=== PATIENT | male | born 1950 | race Caucasian/White ===

== ENCOUNTER 2018-01-17 14:24 | Emergency (ER) | payer OTHER ==
[~2018-01-17] VITALS: Ht 177.8 cm; Wt 87.5 kg
[2018-01-17] MEDS ORDERED: UNICOMPLEX M TA1 TA1 PO (14:40)
[2018-01-17 15:04] LABS: HEMATOCRIT 42.9 % (42.0-52.0); HEMOGLOBIN 14.3 gm/dL (14.0-18.0); MCH 29.5 pg (26.0-34.0); MCHC 33.2 g/dL (28.0-37.0); MCV 88.9 fL (80.0-100.0); MPV 8.2 fl. (7.2-11.1); NUCLEATED RBCS 0 /100WBC; PLATELET COUNT* 288 thou/uL (150-400); RBC 4.83 mil/uL (4.50-6.00); RDW-CV 14.1 % (10.5-14.5)
[2018-01-17 15:28] LABS: ANION GAP 9 mmol/L (7-16); BUN 14 mg/dL (7-18); CALCIUM 8.7 mg/dL (8.5-10.1); CHLORIDE 105 mmol/L (98-107); CO2 25 mmol/L (21-32); CREATININE 0.9 mg/dL (0.6-1.3); GLUCOSE 108 mg/dL (70-99); POTASSIUM 4.7 mmol/L (3.5-5.1); SODIUM 139 mmol/L (136-145)
[2018-01-17 15:33] LABS: ALBUMIN 3.5 g/dL (3.4-5.0); ALKALINE PHOSPHATASE 86 U/L (46-116); SGOT 34 U/L (15-37); SGPT 20 U/L (30-65); TOTAL BILIRUBIN 0.4 mg/dL (<0.1-1.0); TROPONIN-I LEVEL <0.06 ng/mL (<0.06)
[2018-01-17 15:44] LABS: ABSOLUTE LYMPHOCYTES 0.7 thou/uL (0.8-5.3); ABSOLUTE NEUTROPHILS 15.3 thou/uL (1.6-8.1); ATYPICAL LYMPHS 1 %; PLATELET ESTIMATE ADEQUATE
[2018-01-17 16:28] LABS: URINE BLOOD NEGATIVE (Negative); URINE CLARITY CLEAR; URINE COLOR YELLOW; URINE GLUCOSE-RANDOM NEGATIVE (Negative); URINE KETONES 1+ (Negative); URINE LEUKOCYTES-REFLEX NEGATIVE (Negative); URINE NITRITE-REFLEX NEGATIVE (Negative); URINE PROTEIN 1+ (Negative); URINE SPECIFIC GRAVITY >= 1.030 (1.005-1.030); URINE UROBILINOGEN 0.2 E.U./dl (0.2-1.0)
[2018-01-17 16:30] LABS: ICTOTEST (BILI CONFIRMATORY) Negative (Negative); URINE BILIRUBIN 1+ (Negative)
[2018-01-17] MEDS ORDERED: ZOFRAN ODT4 MG PO (16:56)
[2018-01-17] MEDS ORDERED: LOPERAMIDE 2 MG2 M1 PO (16:56)
[2018-01-17 17:04] VITALS: BP 123/73
--- NOTE | 2018-01-18 10:12 | EKG ---
[place] [address] ELECTROCARDIOGRAM REPORT Name: YUMIKO OROZCO [id number] Admission: 01/17/18 Attend Phys: Discharge: 01/17/18 Date of : 54 Report #: [id number] THIS REPORT FOR: //name// [facility] ED Test Date: 2018-01-17 Test Time: 15:09:34 Pat Name: YUMIKO OROZCO Department: Room: Gender: M [employer] Compliance Examiner: : 1950 Requested By: Taya Franklin Order Number: [id number] MD: Chi Bedolla Measurements Intervals [place] Rate: 79 P: 65 SD: 160 QRS: 25 QRSD: 77 T: 60 QT: 362 QTc: 416 Interpretive Statements Sinus rhythm Probable left atrial enlargement Abnormal R-wave progression, early transition No previous ECG available for comparison Electronically Signed On 01-18-2018 10:12:11 CDT by Chi Bedolla [email or web address] <ELECTRONICALLY SIGNED> By: Chi Bedolla MD, [facility] 01/18/18 1012 [id number] [id number] Chi Bedolla MD, FACC /EPI
== END 2018-01-17 17:05 | disposition home or self-care (01) ==
LOC: M.ERS 14:24
PROVIDERS: Physician Assistant
DX: R11.2 Nausea with vomiting, unspecified (principal); R19.7 Diarrhea, unspecified; F17.200 Nicotine dependence, unspecified, uncomplicated; Z90.89 Acquired absence of other organs